=== PATIENT | female | born 1970 | race Caucasian/White ===

== ENCOUNTER 2022-09-16 06:26 | Day surgery (SDC) | payer BC ==
[2022-09-14 09:20] LABS: BASOPHILS % (AUTO) 0.9 % (0.0-5.0); EOSINOPHILS % (AUTO) 2.4 % (0.0-8.0); LYMPHOCYTES % (AUTO) 40.8 % (21.0-51.0); MEAN CORPUSCULAR HEMOGLOBIN 29.1 pg (27.0-33.0); MEAN CORPUSCULAR HGB CONC 32.1 g/dL (32.0-36.0); MEAN CORPUSCULAR VOLUME 90.5 fL (79-99); MONOCYTES % (AUTO) 10.4 % (3.0-13.0); NEUTROPHILS % (AUTO) 45.1 % (40.0-77.0); PLATELET COUNT (AUTO) 228 K/uL (130-400); RED BLOOD CELL COUNT(AUTO) 4.75 MIL/uL (4.00-5.50); RED CELL DISTRIBUTION WIDTH 12.3 % (11.0-15.5); WHITE BLOOD COUNT (AUTO) 7.4 K/uL (4.8-10.8)
[2022-09-14 09:26] LABS: CREATININE 0.8 mg/dL (0.5-1.5); POTASSIUM 4.5 mmol/L (3.5-5.1)
[2022-09-15 12:43] VITALS: BP 171/96
[2022-09-16] VITALS (14 sets, daily range): BP systolic 133–174; BP diastolic 82–94
[~2022-09-16] VITALS: Ht 162.6 cm; Wt 113.0 kg
[~2022-09-16 06:26] MED LIST: ALBU90AE2 IH; AMOX500T2 PO; LACTATED RINGERS 1000ML 1,000 ML IV SCH; LEVO-70 PO; LISI20TA24 PO; OMEP40CA21 PO
[2022-09-16] MEDS ORDERED: DEXAMETHASONE SOD PHOSPHATE 4 MG/ML 1ML VIAL ONE (07:12)
[2022-09-16] MEDS ORDERED: MIDAZOLAM HCL 1 MG/ML 2ML VIAL ONE (07:12)
[2022-09-16] MEDS ORDERED: LIDOCAINE PF 100MG/5ML (2%) SYRINGE 5ML ONE (07:12)
[2022-09-16] MEDS ORDERED: PROPOFOL 10 MG/ML 20ML VIAL IV ONE (07:13)
[2022-09-16] MEDS ORDERED: ONDANSETRON 4MG INJ ONE (07:13)
[2022-09-16] MEDS ORDERED: KETOROLAC 30MG VIAL (30MG/ML) ONE (07:13)
[2022-09-16] MEDS ORDERED: FENTANYL CITRATE PF 50 MCG/1 ML 2ML VIAL ONE (07:14)
[2022-09-16] MEDS ORDERED: MEPERIDINE-PF 25 MG/ML SYG ONE (08:32)
== END 2022-09-16 10:00 | disposition home or self-care (01) ==
LOC: DAH 06:26
PROVIDERS: ATTEND Obstetrics & Gynecology
DX: N95.0 Postmenopausal bleeding (principal); Z20.822 Contact with and (suspected) exposure to COVID-19; R93.89 Abnormal findings on diagnostic imaging of other specified body structures; N84.0 Polyp of corpus uteri; I10 Essential (primary) hypertension; J45.909 Unspecified asthma, uncomplicated; Z80.8 Family history of malignant neoplasm of other organs or systems
CPT/HCPCS: 80048; 84703; 85025; 87426; 36415; 58558; A6260; J1100; A4663; J7120; J3010; J2001; J2250; J2704; J2405; J1885; J2175; A4351; A4215; A4223; A4222; A4221; J7030; A4600